=== PATIENT | female | born 1995 | race Caucasian/White ===

== ENCOUNTER 2017-10-05 14:17 | Emergency (ER) | payer OTHER ==
--- NOTE | 2017-10-05 14:45 | EDPHY ---
HPI/HX/ROS/PE/MDM Narrative: CHIEF COMPLAINT: Facial and hand swelling, bowel incontinence HISTORY OF PRESENT ILLNESS: The patient is a 21 y/o female arriving via EMS complaining of face and hand swelling as well bowel incontinence this afternoon after going for a run. She felt okay on the run until her symptoms began. During her run, she noticed eyelid swelling, lip swelling. After her symptoms began she walked back to her car and developed chest tightness and became short of breath. She then developed crampy abdominal pain and lost control of her bowels, but did not have urinary incontinence. She was unable to stand after the incontinence due to the suprapubic pain so she called 911. While en route to the ED she was given fentanyl for the pain. Since being in the ED her swelling has decreased. Patient can identify no acute inciting factors and no acute potential allergen. Reports cocaine use 2 weeks ago, otherwise no illicit drugs. Denies any throat tightness currently. Denies itching or rash. No fever, chills, rash, itching, palpitations, vomiting, nausea, urinary complaints, headache, lightheadedness. REVIEW OF SYSTEMS: Aside from elements discussed in the HPI, a comprehensive 10-point review of systems was reviewed and is negative. PAST MEDICAL HISTORY: Denies SOCIAL HISTORY: Student at [employer], father at bedside, no marijuana use, non-smoker VITAL SIGNS: Reviewed by me GENERAL: Diffuse erythroderma. Well-developed, well-nourished, resting comfortably in no respiratory distress. HEENT: Atraumatic. Eyes: Mild swelling of eyelids. No icterus, no injection. Mouth: moist mucous membranes. Mild swelling of lips. Mild angioedema of uvula. No erythema or lesions. Neck: supple with no adenopathy. LUNGS: Diminished breath sounds. Clear to auscultation bilaterally, no wheezes, rhonchi or rales. No stridor. CARDIAC: Regular rate and rhythm, no rubs, murmurs or gallops. ABDOMEN: Soft, nontender, nondistended, bowel sounds normal. BACK: No CVA tenderness. EXTREMITIES: Mild edema to dorsum of hands. No trauma. Range of motion is normal throughout. NEURO: Alert and oriented, grossly nonfocal. SKIN: Warm and dry, no rash. PSYCHIATRIC: Normal mentation, no agitation. Portions of this note were transcribed by a medical clerical assistant. I personally performed a history, physical exam, medical decision making, and confirmed accuracy of information the transcribed note. ED Course: The patient is a 21 y/o female arriving via EMS presenting with facial swelling , chest pain, shortness of breath, and then significant abdominal distress and bowel incontinence which occurred shortly after exercising. On exam she has diffuse erythroderma, mild angioedema of her uvula, and mild swelling of her eyelids, lips, and dorsum of hands. Her abdomen is benign. Labs and EKG ordered. Allergy cocktail administered. Patient received epinephrine, Benadryl, prednisone, Pepcid. 1543: Reassessed patient and discussed laboratory findings. 1544: 12-LEAD EKG: Please see the full report in [facility]. My interpretation: Sinus rhythm with a rate of 83 1605: Reassessed patient. Her symptoms are consistent with an abnormal allergic reaction. I have prescribed her Prednisone and an albuterol inhaler for her symptoms. Return precautions provided; patient is comfortable with this plan. MDM: Differential diagnoses for the patient's symptom complex was considered including but not limited to allergic reaction, near syncope, electrolyte abnormalities, abdominal distress. - Data Points Laboratory Results: Laboratory Results 10/05/17 14:21 10/05/17 14:21 Medications Given: Discontinued Medications Albuterol (Proventil Neb) 3 ml IH EDNOW ONE Stop: 10/05/17 14:52 Last Admin: 10/05/17 15:04 Dose: 3 ml Diphenhydramine HCl (Benadryl Injection) 25 mg IVP EDNOW ONE Stop: 10/05/17 14:52 Last Admin: 10/05/17 15:05 Dose: 25 mg Epinephrine HCl (Epinephrine) 0.3 mg IM EDNOW ONE Stop: 10/05/17 14:52 Last Admin: 10/05/17 15:04 Dose: 0.3 mg Sodium Chloride (Ns) 1,000 mls @ 0 mls/hr IV ONCE ONE; Wide Open PRN Reason: Protocol Stop: 10/05/17 14:52 Last Admin: 10/05/17 15:05 Dose: 1,000 mls Methylprednisolone Sodium Succinate (Solu-Medrol) 125 mg IVP EDNOW ONE Stop: 10/05/17 14:52 Last Admin: 10/05/17 15:04 Dose: 125 mg Ranitidine HCl (Zantac) 50 mg IVP EDNOW ONE Stop: 10/05/17 14:52 Last Admin: 10/05/17 15:07 Dose: 50 mg General Time Seen by Provider: 10/05/17 14:21 Initial Vital Signs: Initial Vital Signs Temperature (C) 36.4 C 10/05/17 14:25 Heart Rate 75 10/05/17 14:25 Respiratory Rate 18 10/05/17 14:25 Blood Pressure 117/68 10/05/17 14:25 O2 Sat (%) 95 10/05/17 14:25 O2 Delivery Mode Room Air Allergies/Adverse Reactions: No Known Allergies Allergy (Unverified 10/05/17 14:28) Home Medications: Medication Instructions Recorded Albuterol [Proventil Inhaler HFA 1 - 2 puffs IH Q4H #1 mdi 10/05/17 (*)] Control 10/05/17 predniSONE 40 mg PO DAILY #6 tab 10/05/17 Departure - Departure Disposition: Home, Routine, Self-Care Clinical Impression: Allergic reaction Qualifiers: Encounter type: initial encounter Qualified Code(s): T78.40XA - Allergy, unspecified, initial encounter Condition: Good Instructions: General Allergic Reaction (ED) Additional Instructions: Please take an antihistamine to control lip swelling, hand swelling, rash, and itching. The most common antihistamine is diphenhydramine (Benadryl). Dose is 25-50 mg every 6-8 hours as needed for itching and rash. Diphenhydramine can be sedating. Another type of antihistamine is loratadine (Claritin). This is taken once a day. It is not sedating. Repeat doses of antihistamines may be needed as the reddness and swelling may go over the next several days. You may notice that the hives are worse after exposure to heat, warm showers, or exertion. Take prednisone, which is a steroid. The dose is 40 mg a day x3 doses. Please take this as instructed. Use an Albuterol inhaler as needed for shortness of breath. Return to emergency department or seek care urgently if severe shortness of breath develops, swelling of the lips, eyelids, or sensation that the throat is closing. Please follow up with your primary care physician as needed. When symptoms have completely subsided, follow up with an derrick operator soon as possible to determine the cause of the allergic reaction. Referrals: [facility],. [Clinic] - As per Instructions Prescriptions: Albuterol [Proventil Inhaler HFA (*)] 1 - 2 puffs IH Q4H #1 mdi predniSONE 40 mg PO DAILY #6 tab Report Scribed for: Yessy Brooks Report Scribed by: Briana Arellano Date of Report: 10/05/17 Time of Report: 14:38
[2017-10-05] MEDS ORDERED: methylPREDNISolone SOD SUCC 125 MG/2 ML VIAL IVP ONE (14:51)
[2017-10-05] MEDS ORDERED: RANITIDINE 50 MG/2 ML VIAL IVP ONE (14:51)
[2017-10-05] MEDS ORDERED: NS 1,000 ML IV ONE (14:51)
[2017-10-05] MEDS ORDERED: ALBUTEROL 3 ML DEYVIAL IH ONE (14:51)
[2017-10-05 14:56] LABS: PLATELET COUNT 306 10^3/uL (150-400)
--- NOTE | 2017-10-05 15:45 | CPEKG ---
Heart Rate: 83 RR Interval: 723 P-R Interval: 116 QRSD Interval: 90 QT Interval: 420 QTC Interval: 494 P Krebs: 65 QRS Krebs: 81 T Wave Krebs: 33 EKG Severity - ABNORMAL ECG - EKG Impression: SINUS RHYTHM EKG Impression: RIGHT ATRIAL ABNORMALITY EKG Impression: PROBABLE LEFT VENTRICULAR HYPERTROPHY EKG Impression: BORDERLINE PROLONGED QT INTERVAL Electronically Signed By: Yessy Brooks 05-Oct-2017 21:21:54
[2017-10-05 17:03] VITALS: BP 105/50; PULSE 89; RESP 18; TEMP 98.4; O2SAT 96
== END 2017-10-05 17:03 | disposition home or self-care (01) ==
DX: T78.40XA Allergy, unspecified, initial encounter (principal); E86.9 Volume depletion, unspecified
CPT/HCPCS: 96374; J0171; J1200; J2780; J2930; J7613

== ENCOUNTER → 2017-10-19 | Outpatient (CLI) | payer OTHER | LOC: BMCIMAGING 08:42 | PROVIDERS: ATTEND Internal Medicine | DX: R10.2 Pelvic and perineal pain (principal) ==